=== PATIENT | female | born 1980 | race Two or more races ===

== ENCOUNTER 2021-08-11 22:28 | Emergency (ER) | payer MEDICAID, OTHER ==
[~2021-08-11] VITALS: Ht 165.1 cm; Wt 86.2 kg
[2021-08-11 22:28] VITALS: BP 134/70
== END 2021-08-12 02:29 | disposition left against medical advice (07) ==
LOC: ER 22:31
DX: J02.9 Acute pharyngitis, unspecified (principal); M79.18 Myalgia, other site; R09.81 Nasal congestion; Z53.21 Procedure and treatment not carried out due to patient leaving prior to being seen by health care provider